=== PATIENT | male | born 1990 | race African-American/Black ===

== ENCOUNTER 2017-02-02 11:57 | Emergency (ER) | payer MEDICARE, MEDICAID ==
[~2017-02-02] VITALS: Ht 182.9 cm; Wt 80.0 kg
[~2017-02-02 11:57] MED LIST: ATOM40 PO
[2017-02-02 12:08] VITALS: BP 112/56; PULSE 92; RESP 16; TEMP 98.7; O2SAT 100
[2017-02-02] MEDS ORDERED: FOSPHENYTOIN INJ 1,000 MGPE in SODIUM CHLORIDE 0.9% INJ 50 ML IV ONE (12:15)
[2017-02-02] MEDS ORDERED: RISP1 PO (12:24)
[2017-02-02 12:44] LABS: AUTOMATED NEUTROPHIL # 2.1 TH/MM3 (1.8-7.7); BASOPHIL % 0.8 % (0.0-2.0); EOSINOPHIL # 0.1 TH/MM3 (0-0.4); EOSINOPHIL % 1.7 % (0.0-4.0); HEMATOCRIT 46.9 % (39.0-51.0); HEMO FLAGS DIFF FINAL; LYMPH % 39.3 % (9.0-44.0); LYMPHOCYTE # 1.7 TH/MM3 (1.0-4.8); MEAN CELL VOLUME 86.7 FL (80.0-100.0); MEAN CORPUSCULAR HEMOGLOBIN 29.5 PG (27.0-34.0); MEAN CORPUSCULAR HGB CONC 34.1 % (32.0-36.0); MONO % 7.5 % (0.0-8.0); NEUT % 50.7 % (16.0-70.0); PLATELET COUNT 171 TH/MM3 (150-450); RED BLOOD COUNT 5.41 MIL/MM3 (4.50-5.90); RED CELL DISTRIBUTION WIDTH 13.6 % (11.6-17.2); WHITE BLOOD COUNT 4.2 TH/MM3 (4.0-11.0)
--- NOTE | 2017-02-02 12:49 | PD ---
HPI Chief Complaint: Seizure Time Seen by Provider: 12:10 Travel History International Travel<30 days: No Contact w/Intl Traveler<30days: No Traveled to known affect area: No History of Present Illness HPI This is a 26-year-old male who presents to the emergency department having had a seizure that was witnessed by his day program. They said he was convulsing all over for about 8 minutes, drooling, and not responding. The symptoms were severe and after they subsided he had 2 shorter seizures. He did hit his head on the left side. The patient doesn't provide any history as he has a history of autism. He is evidently only on Risperdal however the day program reports that he has had a seizure with them in March and parents said he they would take him to the doctor for this but they're unsure if they ever followed up. PFSH Past Medical History ADHD: Yes (ADHD) Weight (Kg): 3 Cancer: No Developmental Delay: Yes Diabetes: No Diminished Hearing: No Headaches: No Medical other: Yes (autisum) Psychiatric: Yes Immunizations Current: Yes Migraines: No Seizures: No Thyroid Disease: No Ulcer: No Tetanus Vaccination: < 5 Years Past Surgical History Appendectomy: No Section: No Cholecystectomy: No Social History Alcohol Use: No Tobacco Use: No Substance Use: No Allergies-Medications (Allergen,Severity, Reaction): Coded Allergies: No Known Allergies (Verified Allergy, Unknown, 02/02/17) bee venom protein (honey bee) (Unverified Allergy, Unknown, 02/02/17) GETS "GROSSLY SWOLLEN" PER MOTHER. Reported Meds & Prescriptions Reported Meds & Active Scripts Active Reported Risperdal (Risperidone) 1 Mg Tab 1 Mg PO DAILY Review of Systems Except as stated in HPI: all other systems reviewed are Neg Physical Exam Narrative GENERAL:Well appearing, no acute distress SKIN: Focused skin assessment warm and dry. HEAD: Atraumatic. Normocephalic. EYES: Pupils equal and round. No injection or drainage. ENT: Moist mucous membranes NECK: Trachea midline. CARDIOVASCULAR: Regular rate and rhythm. No murmur appreciated. RESPIRATORY: Clear to auscultation. Breath sounds equal bilaterally. GASTROINTESTINAL: Abdomen soft, non-tender, nondistended. MUSCULOSKELETAL: No obvious deformities. NEUROLOGICAL: Awake and alert. No obvious cranial nerve deficits. Moving all extremities. PSYCHIATRIC: Appropriate mood and affect; insight and judgment normal. Data Data Last Documented VS Vital Signs Date Time Temp Pulse Resp B/P (MAP) Pulse Ox O2 Delivery O2 Flow Rate FiO2 02/02/17 12:08 98.7 92 16 112/56 (74) [address] Brain W/O Iv Contrast(Rout) (02/02/17 ) Complete Blood Count With Diff (02/02/17 12:13) Comprehensive Metabolic Panel (02/02/17 12:13) ^ Insert Iv (02/02/17 12:13) Fosphenytoin Inj (Cerebyx Inj) (02/02/17 12:15) Labs Laboratory Tests Test 02/02/17 12:30 White Blood Count 4.2 TH/MM3 Red Blood Count 5.41 MIL/MM3 Hemoglobin 16.0 GM/DL Hematocrit 46.9 % Mean Corpuscular Volume 86.7 FL Mean Corpuscular Hemoglobin 29.5 PG Mean Corpuscular Hemoglobin Concent 34.1 % Red Cell Distribution Width 13.6 % Platelet Count 171 TH/MM3 Mean Platelet Volume 9.6 FL Neutrophils (%) (Auto) 50.7 % Lymphocytes (%) (Auto) 39.3 % Monocytes (%) (Auto) 7.5 % Eosinophils (%) (Auto) 1.7 % Basophils (%) (Auto) 0.8 % Neutrophils # (Auto) 2.1 TH/MM3 Lymphocytes # (Auto) 1.7 TH/MM3 Monocytes # (Auto) 0.3 TH/MM3 Eosinophils # (Auto) 0.1 TH/MM3 Basophils # (Auto) 0.0 TH/MM3 CBC Comment DIFF FINAL Differential Comment Blood Urea Nitrogen 12 MG/DL Creatinine 1.30 MG/DL Random Glucose 123 MG/DL Total Protein 8.0 GM/DL Albumin 4.3 GM/DL Calcium Level 9.3 MG/DL Alkaline Phosphatase 91 U/L Aspartate Amino Transf (AST/SGOT) 24 U/L Alanine Aminotransferase (ALT/SGPT) 50 U/L Total Bilirubin 0.5 MG/DL Sodium Level 137 MEQ/L Potassium Level 4.0 MEQ/L Chloride Level 104 MEQ/L Carbon Dioxide Level 18.3 MEQ/L Anion Gap 15 MEQ/L Estimat Glomerular Filtration Rate 82 ML/MIN MDM Medical Decision Making Medical Screen Exam Complete: Yes Emergency Medical Condition: Yes Interpretation(s) Afebrile, mild tachycardia, normotensive No leukocytosis Bicarbonate is 18 likely in the setting of recent seizure Last [address] 02/02/17 0000 Signed Impressions: Service Date/Time: Thursday, February 02, 2017 12:50 - CONCLUSION: Normal examination. Triston Doan MD Differential Diagnosis Intracranial hemorrhage, seizure, electrolyte abnormality, syncope Narrative Course This is a 26-year-old male who presents to the emergency department having had a seizure. He has a history of autism. He evidently had a seizure earlier this year. His mom took him to [place] where they did an EEG and they wanted him to go for an MRI but he was able to tolerate it. They haven't followed up since and is not on any antiepileptics. Here in the emergency department he was placed on a monitor and an IV was established. Labs are obtained which are reassuring. CT of the head was obtained which was unremarkable. Patient was loaded with fosphenytoin. Given the duration of his seizure I think it's reasonable to discharge him with Dilantin and have him follow-up with a neurologist. Diagnosis Primary Impression: Seizure Patient Instructions: General Instructions Additional Instructions: If Patrice has further seizures, is not acting himself or is having difficulty walking or talking return to the emergency room. Follow-up with a neurologist as soon as possible. Med/Other Pt SpecificInfo: Prescription(s) given Scripts Phenytoin Extended (Phenytoin Extended) 100 Mg Cap 100 MG PO TID for Control Seizures, #90 CAP 0 Refills Prov: Anuja Son MD 02/02/17 Disposition: 01 DISCHARGE HOME Condition: Stable Anuja Son MD Feb 02, 2017 12:49
[2017-02-02 12:58] LABS: ANION GAP 15 MEQ/L (5-15); AST (GOT) 24 U/L (15-37); BICARBONATE 18.3 MEQ/L (21.0-32.0); BLOOD UREA NITROGEN 12 MG/DL (7-18); CHLORIDE 104 MEQ/L (98-107); GLOMERULAR FILTRATION RATE 82 ML/MIN (>89); SODIUM (NA) 137 MEQ/L (136-145)
[2017-02-02 13:00] LABS: ALT (GPT) 50 U/L (12-78)
[2017-02-02 13:02] LABS: ALKALINE PHOSPHATASE 91 U/L (45-117); TOTAL BILIRUBIN ADULT 0.5 MG/DL (0.2-1.0)
--- NOTE | 2017-02-02 13:07 | RADRPT ---
EXAM DATE/TIME: 02/02/2017 12:50 [facility] COMPARISON: No previous studies available for comparison. INDICATIONS : Head pain, post seizure today. RADIATION DOSE: 56.41 CTDIvol (mGy) MEDICAL HISTORY : Seizures. Autism. SURGICAL HISTORY : None. ENCOUNTER: Initial ACUITY: 2 days PAIN SCALE: 3/10 LOCATION: Bilateral cranial TECHNIQUE: Multiple contiguous axial images were obtained of the head. Using automated exposure control and adj ustment of the mA and/or kV according to patient size, radiation dose was kept as low as reasonably a chievable to obtain optimal diagnostic quality images. DICOM format image data is available electro nically for review and comparison. FINDINGS: CEREBRUM: The ventricles are normal for age. No evidence of midline shift, mass lesion, hemorrhage or acute in farction. No extra-axial fluid collections are seen. POSTERIOR FOSSA: The cerebellum and brainstem are intact. The 4th ventricle is midline. The cerebellopontine angle i s unremarkable. EXTRACRANIAL: The visualized portion of the orbits is intact. SKULL: The calvaria is intact. No evidence of skull fracture. CONCLUSION: Normal examination. Triston Doan MD on February 02, 2017 at 13:04 Board Certified Radiologist. This report was verified electronically.
[2017-02-02] MEDS ORDERED: PHEN100C PO (13:58)
== END 2017-02-02 14:48 | disposition home or self-care (01) ==
LOC: NEPC 11:57
DX: R56.9 Unspecified convulsions (principal); F84.0 Autistic disorder; F90.9 Attention-deficit hyperactivity disorder, unspecified type
CPT/HCPCS: 70450; 80053; 85025; 96365; 99285; Q2009